=== PATIENT | female | born 1945 | race Caucasian/White ===

== ENCOUNTER → 2016-09-04 | Outpatient (CLI) | payer OTHER | END | disposition home or self-care (01) | LOC: C.PAPS 11:56 | PROVIDERS: ATTEND Obstetrics & Gynecology | DX: Z01.419 Encounter for gynecological examination (general) (routine) without abnormal findings (principal) ==

== ENCOUNTER → 2016-10-14 | Outpatient (CLI) | payer OTHER ==
[2016-10-14 11:30] LABS: ALT/SGPT 28 U/L (12-78); AST/SGOT 21 U/L (15-37); BLOOD UREA NITROGEN 21 mg/dl (7-18); BUN/CREATININE RATIO 31.1 (10-20); CARBON DIOXIDE 26 mmol/L (21-32); CHLORIDE 106 mmol/L (98-107); CREATININE 0.69 mg/dl (0.60-1.20); GLUCOSE 102 mg/dl (70-99); POTASSIUM 3.8 mmol/L (3.5-5.1); SODIUM 142 mmol/L (136-145)
[2016-10-14 11:32] LABS: ALB/GLOB RATIO 0.9 (0.9-2); ALKALINE PHOSPHATASE 110 U/L (45-117)
[2016-10-20 15:40] LABS: ANTI-CENTROMERE AB <1.0 NEG AI (<1.0 NEG); ANTI-SS-A <1.0 NEG AI (<1.0 NEG); ANTI-SS-B <1.0 NEG AI (<1.0 NEG); DNA ds CRITHIDIA NEGATIVE (NEGATIVE); MICROSOMAL AB <1 IU/ML (<9); Sm Antibody <1.0 NEG AI (<1.0 NEG)
== END | disposition home or self-care (01) ==
LOC: C.LABBC 08:24
PROVIDERS: ATTEND Family Medicine
DX: I10 Essential (primary) hypertension (principal); H04.123 Dry eye syndrome of bilateral lacrimal glands

== ENCOUNTER → 2016-10-26 | Outpatient (CLI) | payer OTHER ==
--- NOTE | 2016-10-27 12:17 | MAMMOGRAPHY REPORT ---
BILATERAL DIGITAL SCREENING MAMMOGRAM WITH CAD: 10/26/2016 CLINICAL HISTORY: Routine screening. Patient has no complaints. TECHNIQUE: Bilateral CC and MLO views were obtained. Current study was also evaluated with a Comput er Aided Detection (CAD) system. COMPARISON: Comparison is made to exams dated: 10/23/2015 mammogram, 10/22/2014 mammogram, 10/18/2013 mammogram, 10/17/2012 mammogram, 10/17/2012 ultrasound, and 04/18/2012 ultrasound - [facility]. BREAST COMPOSITION: The tissue of both breasts is heterogeneously dense, which may obscure small ma sses. FINDINGS: There is evidence of prior bilateral breast surgery. There is expected architectural dis tortion and benign oil cysts bilaterally. There is also coarse dystrophic calcification in the 12:0 0 far posterior right breast. No new suspicious mass, architectural distortion or cluster of suspic ious microcalcifications is seen. IMPRESSION: ACR BI-RADS CATEGORY 1: NEGATIVE There is no mammographic evidence of malignancy. A 1 year screening mammogram is recommended. The p atient will receive written notification of the results. Approximately 10% of breast cancers are not detected with mammography. A negative mammographic repor t should not delay biopsy if a clinically suggestive mass is present. Mickie Sutherland M.D. ay/:10/26/2016 16:50:11 Ferris Wheel Operator: Salena DIETRICH)(Juan), [facility] letter sent: Normal 1/2 BI-RADS Code: ACR BI-RADS Category 1: Negative
== END | disposition home or self-care (01) ==
LOC: C.MAMM 10:39
PROVIDERS: ATTEND Obstetrics & Gynecology
DX: Z12.31 Encounter for screening mammogram for malignant neoplasm of breast (principal)

== ENCOUNTER → 2017-04-15 | Outpatient (CLI) | payer OTHER | END | disposition home or self-care (01) | LOC: C.CPL 10:53 | PROVIDERS: ATTEND Physician Assistant Medical | DX: R06.09 Other forms of dyspnea (principal) ==

== ENCOUNTER → 2017-04-15 | Outpatient (CLI) | payer OTHER ==
--- NOTE | 2017-04-15 08:42 | DIAGNOSTIC IMAGING REPORT ---
CHEST 2 VIEWS ROUTINE CLINICAL HISTORY: COUGH dyspnea COMPARISON STUDY: 12/26/2012 FINDINGS: The bones soft tissues and hemidiaphragms are normal. The cardiomediastinal silhouette is normal. The lungs are clear. The pulmonary vasculature is normal. IMPRESSION: Negative chest. The above report was generated using voice recognition software. It may contain grammatical, syntax or spelling errors. Electronically signed by: Omar Dawson M.D. 04/15/2017 8:41 AM Dictated Date/Time: 04/15/2017 8:40 AM
[2017-04-15 11:22] LABS: ALT/SGPT 29 U/L (12-78); BLOOD UREA NITROGEN 26 mg/dl (7-18); BUN/CREATININE RATIO 35.6 (10-20); CALCIUM 9.6 mg/dl (8.5-10.1); CARBON DIOXIDE 28 mmol/L (21-32); CHLORIDE 105 mmol/L (98-107); CHOLESTEROL 184 mg/dl (0-200); CREATININE 0.73 mg/dl (0.60-1.20); GLUCOSE 100 mg/dl (70-99); SODIUM 139 mmol/L (136-145); TRIGLYCERIDES 128 mg/dl (0-150); VERY LOW DENSITY LIPOPROT CALC 26 mg/dl
[2017-04-15 11:33] LABS: ALKALINE PHOSPHATASE 92 U/L (45-117); AST/SGOT 24 U/L (15-37); CHOLESTEROL/HDL RATIO 2.1; HDL CHOLESTEROL 86 mg/dl; LDL CHOLESTEROL CALCULATED 72 mg/dl
== END | disposition home or self-care (01) ==
LOC: C.RADBC 08:21
PROVIDERS: ATTEND Physician Assistant Medical
DX: E78.5 Hyperlipidemia, unspecified (principal); I10 Essential (primary) hypertension; R06.09 Other forms of dyspnea; R05 Cough

== ENCOUNTER → 2017-04-19 | Outpatient (CLI) | payer OTHER ==
--- NOTE | 2017-04-19 13:39 | DIAGNOSTIC IMAGING REPORT ---
CAROTID DOPPLER NECK ART CLINICAL HISTORY: 72 years-old Female with CAROTID BRUIT. Initial exam. COMPARISON: None available. TECHNIQUE: Multiple real time sonographic images of the carotid bifurcations were obtained assessing luna scale, color Doppler and spectral wave form appearance FINDINGS: RIGHT CAROTID: The peak systolic velocity measured 71 cm/sec. The end diastolic velocity measured 24 cm/sec. The ICA to CCA ratio measured 0.9 which correlates with a stenosis of 0-50%. There is mild mixed plaquing of the right carotid bulb LEFT CAROTID: The peak systolic velocity measured 97 cm/sec. The end diastolic velocity measured 35 cm/sec. The ICA to CCA ratio measured 0.9 which correlates with a stenosis of 0-50%. There is mild mixed plaquing of the left carotid bulb. There is normal antegrade vertebral flow bilaterally. IMPRESSION: 1. Mild atherosclerotic plaquing of the bilateral carotid bulbs without hemodynamically significant stenosis. 2. Normal antegrade vertebral flow bilaterally. The above report was generated using voice recognition software. It may contain grammatical, syntax or spelling errors. Electronically signed by: Juan Caballero M.D. 04/19/2017 1:38 PM Dictated Date/Time: 04/19/2017 1:35 PM
== END | disposition home or self-care (01) ==
LOC: C.ULTRBC 12:52
PROVIDERS: ATTEND Physician Assistant Medical
DX: R09.89 Other specified symptoms and signs involving the circulatory and respiratory systems (principal)

== ENCOUNTER 2017-08-31 19:41 | Observation (INO) | payer OTHER ==
[~2017-08-31] VITALS: Ht 160 cm; Wt 84.1 kg
[2017-08-31 20:48] LABS: BASO % 0.4 %; BASO ABS # 0.03 K/uL (0-0.2); EOS % 4.3 %; EOS ABS # 0.32 K/uL (0-0.5); HEMATOCRIT 38.3 % (37-47); HEMOGLOBIN 12.5 g/dL (12.0-16.0); IG# 0.01 K/uL (0.00-0.02); LYMPH % 31.3 %; LYMPH ABS # 2.31 K/uL (1.2-3.4); MEAN CELL VOLUME 89.9 fL (80-100); MEAN CORPUSCULAR HEMOGLOBIN 29.3 pg (25-34); MEAN CORPUSCULAR HGB CONC 32.6 g/dl (32-36); MEAN PLATELET VOLUME 10.4 fL (7.4-10.4); MONO ABS # 0.59 K/uL (0.11-0.59); NEUT % 55.9 %; NEUT ABS # 4.11 K/uL (1.4-6.5); PLATELET COUNT 249 K/uL (130-400); RED CELL DISTRIBUTION WIDTH CV 14.7 % (11.5-14.5); RED CELL DISTRIBUTION WIDTH SD 47.8 fL (36.4-46.3); WHITE BLOOD COUNT 7.37 K/uL (4.8-10.8)
[2017-08-31 21:12] LABS: ALBUMIN 3.8 gm/dl (3.4-5.0); CALCIUM 9.5 mg/dl (8.5-10.1); CREATININE 0.85 mg/dl (0.60-1.20); POTASSIUM 3.8 mmol/L (3.5-5.1)
--- NOTE | 2017-08-31 22:15 | DIAGNOSTIC IMAGING REPORT ---
GALLBLADDER-ABD LIMITED HISTORY: 72 years-old Female elevated bili and lfts acutely elevated liver function tests COMPARISON: None available TECHNIQUE: Multiple real-time sonographic images of the abdominal right upper quadrant were obtained assessing grayscale appearance and color Doppler flow FINDINGS: Study is limited secondary to obscuring bowel gas. The visualized pancreas is unremarkable. There is increased echogenicity with poor through transmission of the liver suggesting fatty infiltration. No focal hepatic mass lesions or intrahepatic biliary ductal dilation. Common bile duct measures 3 mm, within normal limits. The gallbladder is within normal limits without shadowing cholelithiasis, wall thickening or pericholecystic fluid. Imaged right kidney is unremarkable without hydronephrosis. IMPRESSION: 1. No cholelithiasis or sonographic evidence of acute cholecystitis. 2. No biliary ductal dilation. 3. Hepatic steatosis. The above report was generated using voice recognition software. It may contain grammatical, syntax or spelling errors. Electronically signed by: Juan Caballero M.D. 08/31/2017 10:14 PM Dictated Date/Time: 08/31/2017 10:12 PM
[2017-08-31] MEDS ORDERED: OPTIRAY 320 IV PRN (22:45)
[2017-08-31] MEDS ORDERED: PRAV20TA PO ×2 (23:42)
[2017-08-31] MEDS ORDERED: B-CO1CAP17 PO ×2 (23:43)
[2017-08-31] MEDS ORDERED: OMEG10007 PO ×2 (23:43)
[2017-08-31] MEDS ORDERED: ASPI81TA28 PO ×2 (23:43)
[2017-08-31] MEDS ORDERED: FURO-85 PO ×2 (23:44)
[2017-08-31] MEDS ORDERED: METO50TA16 PO ×2 (23:44)
[2017-08-31] MEDS ORDERED: ALBU18002 INH ×2 (23:45)
[2017-08-31] MEDS ORDERED: DIAZ2TAB PO ×2 (23:46)
[2017-08-31] MEDS ORDERED: MAGN400T6 PO ×2 (23:46)
[2017-08-31] MEDS ORDERED: CHOL400T PO ×2 (23:48)
[2017-08-31] MEDS ORDERED: ATOR10TA82 PO ×2 (23:48)
[2017-08-31] MEDS ORDERED: MULT-506 PO ×2 (23:49)
[2017-08-31] MEDS ORDERED: SENNTAB23 PO ×2 (23:50)
--- NOTE | 2017-09-01 00:52 | EMERGENCY ROOM VISIT NOTE ---
History Report prepared by Carlos: Luciano Larkin Under the Supervision of: Dr. Wiley Torres D.O. First contact with patient: 19:57 Chief Complaint: ABNORMAL LABS Stated Complaint: LIVER TEST # OVER 600 History of Present Illness The patient is a 72 year old female who presents to the Emergency Room for evaluation of abnormal laboratory studies occurring today. Her LFTs were found to be above 600 by her PCP today. She has a history of similar symptoms associated with taking Tetracycline for acne. The patient began experiencing right sided jaw pain two weeks ago, and was seen by her PCP last week for it. She was found to have wax in her right ear at this time, and had it flushed out. She was started on Augmentin at this time for an ear infection. The patient states that she noticed her urine was dark this week, especially last night. She was seen by PCP again today for the urine and was found to have the abnormal lab values. Pt denies headache, change in vision, fevers, chest pain, shortness of breath, nausea, vomiting, diarrhea, and melena. She states that she feels fine. Source of History: patient Onset: Today Symptom Intensity: LFTs above 600 Quality: other (abnormal laboratory studies) Associated Symptoms: + urinary symptoms (dark color), No fevers, No headache , No chest pain, No SOB, No nausea, No vomiting, No melena, No diarrhea Review of Systems See HPI for pertinent positives & negatives. A total of 10 systems reviewed and were otherwise negative. Past Medical & Surgical Medical Problems: (1) GERD (gastroesophageal reflux disease) (2) HLD (hyperlipidemia) (3) HTN (hypertension) Family History No pertinent family history stated. Social History Smoking Status: Never Smoker Marital Status: Housing Status: lives with significant other Current/Historical Medications Scheduled Aspirin (Aspirin Ec), 81 MG PO DAILY Atorvastatin (Lipitor), 10 MG PO DAILY Cholecalciferol (Vitamin D), 400 UNITS PO DAILY Fish Oil ([place]-3), 1 CAP PO DAILY Furosemide (Lasix), 20 MG PO DAILY Magnesium Oxide (Mag-Ox), 400 MG PO DAILY Metoprolol Tartrate (Lopressor) (Lopressor), 50 MG PO BID Multivitamin (Multivitamin), 1 TAB PO DAILY Pravastatin (Pravachol ), 40 MG PO DAILY Sennosides-Docusate Sodium (Stool Softener), 1 TAB PO DAILY Vitamin B Cmplx/Vitc/Folic Ac (Nephrocaps), 1 CAP PO DAILY Scheduled PRN Albuterol Sulfate (Proair Respiclick), 2 PUFFS INH DIRECTED PRN for SOB/ Wheezing Diazepam (Valium), Unknown Dose PO QID PRN for anxiety Allergies Coded Allergies: Erythromycin (Verified Allergy, Unknown, 08/31/17) Morphine (Verified Allergy, Unknown, 08/31/17) Physical Exam Vital Signs Date Time Temp Pulse Resp B/P (MAP) Pulse Ox O2 Delivery O2 Flow Rate FiO2 09/01/17 00:18 92 18 162/75 95 Room Air 08/31/17 22:33 91 18 145/74 97 Room Air 08/31/17 21:38 95 14 154/74 96 Room Air 08/31/17 19:52 36.8 100 20 167/81 96 Room Air Physical Exam GENERAL: Sitting up in bed, alert, well appearing, well nourished, no distress, non-toxic EYE EXAM: Scleral icterus present. OROPHARYNX: no exudate, no erythema, lips, buccal mucosa, and tongue normal and mucous membranes are moist NECK: supple, no nuchal rigidity, no adenopathy, non-tender LUNGS: Clear to auscultation. Normal chest wall mechanics HEART: no murmurs, S1 normal and S2 normal ABDOMEN: abdomen soft, non-tender, normo-active bowel sounds, no masses, no rebound or guarding. BACK: Back is symmetrical on inspection and there is no deformity, no midline tenderness, no CVA tenderness. SKIN: no rashes and no bruising UPPER EXTREMITIES: upper extremities are grossly normal. LOWER EXTREMITIES: No pitting edema. NEURO EXAM: Normal sensorium, cranial nerves II-XII grossly intact, normal speech, no gross weakness of arms, no gross weakness of legs. Medical Decision & Procedures ER Provider Diagnostic Interpretation: CT results per statrad and my review CT ABDOMEN & PELVIS With Contrast: Probable gallstones. No CT of acute cholecystitis. Liver, spleen, pancreas, and adrenal glands are unremarkable. Kidneys, ureters, and urinary bladder are unremarkable. Uterus and adnexa are unremarkable. Appendix is unremarkable. Bowel is unremarkable. No acute osseous abnormality. US results as stated below per my review and the radiologist's interpretation: GALLBLADDER-ABD LIMITED FINDINGS: Study is limited secondary to obscuring bowel gas. The visualized pancreas is unremarkable. There is increased echogenicity with poor through transmission of the liver suggesting fatty infiltration. No focal hepatic mass lesions or intrahepatic biliary ductal dilation. Common bile duct measures 3 mm, within normal limits. The gallbladder is within normal limits without shadowing cholelithiasis, wall thickening or pericholecystic fluid. Imaged right kidney is unremarkable without hydronephrosis. IMPRESSION: 1. No cholelithiasis or sonographic evidence of acute cholecystitis. 2. No biliary ductal dilation. 3. Hepatic steatosis. The above report was generated using voice recognition software. It may contain grammatical, syntax or spelling errors. Electronically signed by: Juan Caballero M.D. 08/31/2017 10:14 PM Laboratory Results 08/31/17 20:31 Red Blood Count 4.26, Mean Corpuscular Volume 89.9, Mean Corpuscular Hemoglobin 29.3, Mean Corpuscular Hemoglobin Concent 32.6, Mean Platelet Volume 10.4, Neutrophils (%) (Auto) 55.9, Lymphocytes (%) (Auto) 31.3, Monocytes (%) (Auto) 8.0, Eosinophils (%) (Auto) 4.3, Basophils (%) (Auto) 0.4, Neutrophils # (Auto) 4.11, Lymphocytes # (Auto) 2.31, Monocytes # (Auto) 0.59, Eosinophils # (Auto) 0.32, Basophils # (Auto) 0.03 08/31/17 20:31 Test 08/31/17 20:31 09/01/17 00:06 White Blood Count 7.37 K/uL (4.8-10.8) Red Blood Count 4.26 M/uL (4.2-5.4) Hemoglobin 12.5 g/dL (12.0-16.0) Hematocrit 38.3 % (37-47) Mean Corpuscular Volume 89.9 fL (80-100) Mean Corpuscular Hemoglobin 29.3 pg (25-34) Mean Corpuscular Hemoglobin Concent 32.6 g/dl (32-36) Platelet Count 249 K/uL (130-400) Mean Platelet Volume 10.4 fL (7.4-10.4) Neutrophils (%) (Auto) 55.9 % Lymphocytes (%) (Auto) 31.3 % Monocytes (%) (Auto) 8.0 % Eosinophils (%) (Auto) 4.3 % Basophils (%) (Auto) 0.4 % Neutrophils # (Auto) 4.11 K/uL (1.4-6.5) Lymphocytes # (Auto) 2.31 K/uL (1.2-3.4) Monocytes # (Auto) 0.59 K/uL (0.11-0.59) Eosinophils # (Auto) 0.32 K/uL (0-0.5) Basophils # (Auto) 0.03 K/uL (0-0.2) RDW Standard Deviation 47.8 fL (36.4-46.3) RDW Coefficient of Variation 14.7 % (11.5-14.5) Immature Granulocyte % (Auto) 0.1 % Immature Granulocyte # (Auto) 0.01 K/uL (0.00-0.02) Prothrombin Time 10.5 SECONDS (9.0-12.0) Prothromb Time International Ratio 1.0 (0.9-1.1) Urine Color YELLOW Urine Appearance CLEAR (CLEAR) Urine pH 6.5 (4.5-7.5) Urine Specific [place] 1.011 (1.000-1.030) Urine Protein NEG (NEG) Urine Glucose (UA) NEG (NEG) Urine Ketones NEG (NEG) Urine Occult Blood TRACE (NEG) Urine Nitrite NEG (NEG) Urine Bilirubin NEG (NEG) Urine Urobilinogen NEG (NEG) Urine Leukocyte Esterase NEG (NEG) Urine WBC (Auto) 0 /hpf (0-5) Urine RBC (Auto) 0-4 /hpf (0-4) Urine Hyaline Casts (Auto) 0 /lpf (0-5) Urine Epithelial Cells (Auto) 0-5 /lpf (0-5) Urine Bacteria (Auto) NEG (NEG) Anion Gap 8.0 mmol/L (3-11) Est Creatinine Clear Calc Drug Dose 60.5 ml/min Estimated GFR () 78.8 Estimated GFR (Non- 68.0 BUN/Creatinine Ratio 22.7 (10-20) Calcium Level 9.5 mg/dl (8.5-10.1) Total Bilirubin 2.6 mg/dl (0.2-1) Direct Bilirubin 2.1 mg/dl (0-0.2) Aspartate Amino Transf (AST/SGOT) 235 U/L (15-37) Alanine Aminotransferase (ALT/SGPT) 596 U/L (12-78) Alkaline Phosphatase 548 U/L (45-117) Total Protein 8.0 gm/dl (6.4-8.2) Albumin 3.8 gm/dl (3.4-5.0) Lipase 241 U/L (73-393) Laboratory results per my review. ED Course ED COURSE: Vital signs were reviewed and showed tachycardia, and hypertension. The patients medical record was reviewed The above diagnostic studies were performed and reviewed. ED treatments and interventions as stated above. 2004: The patient was evaluated in room B4B. A complete history and physical examination was performed. 0010: Upon reevaluation, the patient is resting comfortably. I discussed my findings with the patient and she understands and agrees with the treatment plan. Based on the patients age, coexisting illnesses, exam and lab findings the decision to treat as an inpatient was made. The patient remained stable while under my care. The patient will be evaluated for further management. Medical Decision Differential diagnoses includes but is not limited to gastritis, peptic ulcer disease, GERD, gallbladder disease, pancreatitis, small bowel obstruction, acute coronary syndrome, pericarditis, ischemic bowel, irritable bowel disease, irritable bowel syndrome, appendicitis, diverticulitis, malignancy, hernia, urinary tract infection, torsion, perforation, trauma, infectious. Patient is a 72-year-old female referred in for a transaminitis with blood work done as an outpatient. She was recently placed on Augmentin for a right otitis media. She took 4 days worth of this antibiotic. CBC was unremarkable. BMP was normal. Bilirubin total was 2.6. AST 2:30 LT 600 alkaline phosphatase was elevated swell. Lipase is normal. INR normal. UA normal. Ultrasound shows no signs of dilated CBD. CT abdomen and pelvis shows no pancreatic mass. Discussed with GI and internal medicine. Patient will be admitted for further workup. Medication Reconcilliation Current Medication List: was personally reviewed by me Blood Pressure Screening Patient's blood pressure: Elevated blood pressure Blood pressure disposition: Referred to PCP Consults Time Called: 0001 Consulting Physician: Dr. Juan - PAT Hospitalist Returned Call: 0010 I reviewed the patient's case with Dr. Juan. PAT will evaluate the patient for further management. Impression Primary Impression: Transaminitis Additional Impression: Elevated bilirubin Scribe Attestation The scribe's documentation has been prepared under my direction and personally reviewed by me in its entirety. I confirm that the note above accurately reflects all work, treatment, procedures, and medical decision making performed by me. Departure Information Dispostion Being Evaluated By Hospitalist Referrals Mickie Orr ., MINDA (PCP) Patient Instructions My [facility] Problem Qualifiers
--- NOTE | 2017-09-01 01:32 | History and Physical ---
History & Physical Date & Time of Service: Sep 01, 2017 at 01:21 Chief Complaint: Liver Test # Over 600 Primary Care Physician: Mickie Orr .MINDA History of Present Illness Source: family 72 year old female with LBBB, HLD, HTN referred to ED for significantly deranged LFTs. Went to see PCP 1 week ago with jaw pain was found to have ear infection. Was put on Augmentin and completed 6 days worth of medication. ~5 days after onset of use, noticed urine was darker. Informed her PCP of this, and he performed routine labs and advised patient for further assessment. She denies recent travel or blood transfusion. Patient otherwise asymptomatic: no abdominal pain or bloating, no nausea/ vomiting, no jaundice, no changes in stool colour, no diarrhea or constipation. She had similar issues with urine discolouration and liver issues with chronic tetracycline use, but this resolved with discontinuation of the drug. 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 had similar urine colour changes in urine She otherwise denies fevers/chills, headaches, CP, palpitations, dyspnea, lower extremity swelling or bruising/bleeding or rashes. She has been tolerating diet , ambulating without issues, and voiding and stooling appropriately. ROS is unremarkable except as noted above. Past Medical/Surgical History Medical Problems: GERD HLD HTN LBBB Chronic lower extremity edema Surgical Problems: Breast implants and removal Family History Non contributory Social History Smoking Status: Never Smoker Smokeless Tobacco Use: No Alcohol Use: none Drug Use: none Marital Status: Housing status: lives with significant other Occupational Status: retired Immunizations History of Influenza Vaccine: Unknown History of Tetanus Vaccine?: Unknown History of Pneumococcal: Unknown History of Hepatitis B Vaccine: Unknown Multi-Drug Resistant Organisms History of MDRO: No Allergies Coded Allergies: Erythromycin (Verified Allergy, Unknown, 08/31/17) Morphine (Verified Allergy, Unknown, 08/31/17) Home Medications Scheduled Aspirin (Aspirin Ec), 81 MG PO DAILY Atorvastatin (Lipitor), 10 MG PO DAILY Cholecalciferol (Vitamin D), 400 UNITS PO DAILY Fish Oil ([place]-3), 1 CAP PO DAILY Furosemide (Lasix), 20 MG PO PRN Magnesium Oxide (Mag-Ox), 400 MG PO DAILY Metoprolol Tartrate (Lopressor) (Lopressor), 25 MG PO BID Multivitamin (Multivitamin), 1 TAB PO DAILY Pravastatin (Pravachol ), 40 MG PO DAILY Sennosides-Docusate Sodium (Stool Softener), 1 TAB PO DAILY Vitamin B Cmplx/Vitc/Folic Ac (Nephrocaps), 1 CAP PO DAILY Scheduled PRN Albuterol Sulfate (Proair Respiclick), 2 PUFFS INH DIRECTED PRN for SOB/ Wheezing Diazepam (Valium), Unknown Dose PO QID PRN for anxiety Physical Exam Vital Signs Date Time Temp Pulse Resp B/P (MAP) Pulse Ox O2 Delivery O2 Flow Rate FiO2 09/01/17 00:18 92 18 162/75 95 Room Air 08/31/17 22:33 91 18 145/74 97 Room Air 08/31/17 21:38 95 14 154/74 96 Room Air 08/31/17 19:52 36.8 100 20 167/81 96 Room Air General Appearance: WD/WN, no apparent distress Head: normocephalic, atraumatic Eyes: normal inspection, sclerae normal ENT: hearing grossly normal, pharynx normal Neck: supple, no adenopathy Respiratory/Chest: normal breath sounds, no respiratory distress, no accessory muscle use Cardiovascular: regular rate, rhythm, no murmur, normal peripheral pulses, + systolic murmur Abdomen/GI: normal bowel sounds, non tender, soft, no organomegaly Back: normal inspection, no CVA tenderness Extremities/Musculoskelatal: normal inspection, no calf tenderness Neurologic/Psych: alert, normal mood/affect, oriented x 3 Skin: normal color, warm/dry, no rash Diagnostics Laboratory Results Results Past 24 Hours Test 08/31/17 20:31 09/01/17 00:06 Range/Units White Blood Count 7.37 4.8-10.8 K/uL Red Blood Count 4.26 4.2-5.4 M/uL Hemoglobin 12.5 12.0-16.0 g/dL Hematocrit 38.3 37-47 % Mean Corpuscular Volume 89.9 80-100 fL Mean Corpuscular Hemoglobin 29.3 25-34 pg Mean Corpuscular Hemoglobin Concent 32.6 32-36 g/dl Platelet Count 249 130-400 K/uL Mean Platelet Volume 10.4 7.4-10.4 fL Neutrophils (%) (Auto) 55.9 % Lymphocytes (%) (Auto) 31.3 % Monocytes (%) (Auto) 8.0 % Eosinophils (%) (Auto) 4.3 % Basophils (%) (Auto) 0.4 % Neutrophils # (Auto) 4.11 1.4-6.5 K/uL Lymphocytes # (Auto) 2.31 1.2-3.4 K/uL Monocytes # (Auto) 0.59 0.11-0.59 K/uL Eosinophils # (Auto) 0.32 0-0.5 K/uL Basophils # (Auto) 0.03 0-0.2 K/uL RDW Standard Deviation 47.8 36.4-46.3 fL RDW Coefficient of Variation 14.7 11.5-14.5 % Immature Granulocyte % (Auto) 0.1 % Immature Granulocyte # (Auto) 0.01 0.00-0.02 K/uL Prothrombin Time 10.5 9.0-12.0 SECONDS Prothromb Time International Ratio 1.0 0.9-1.1 Urine Color YELLOW Urine Appearance CLEAR CLEAR Urine pH 6.5 4.5-7.5 Urine Specific [place] 1.011 1.000-1.030 Urine Protein NEG NEG Urine Glucose (UA) NEG NEG Urine Ketones NEG NEG Urine Occult Blood TRACE NEG Urine Nitrite NEG NEG Urine Bilirubin NEG NEG Urine Urobilinogen NEG NEG Urine Leukocyte Esterase NEG NEG Urine WBC (Auto) 0 0-5 /hpf Urine RBC (Auto) 0-4 0-4 /hpf Urine Hyaline Casts (Auto) 0 0-5 /lpf Urine Epithelial Cells (Auto) 0-5 0-5 /lpf Urine Bacteria (Auto) NEG NEG Sodium Level 139 136-145 mmol/L Potassium Level 3.8 3.5-5.1 mmol/L Chloride Level 104 98-107 mmol/L Carbon Dioxide Level 27 21-32 mmol/L Anion Gap 8.0 3-11 mmol/L Blood Urea Nitrogen 19 7-18 mg/dl Creatinine 0.85 0.60-1.20 mg/dl Est Creatinine Clear Calc Drug Dose 60.5 ml/min Estimated GFR () 78.8 Estimated GFR (Non- 68.0 BUN/Creatinine Ratio 22.7 10-20 Random Glucose 110 70-99 mg/dl Calcium Level 9.5 8.5-10.1 mg/dl Total Bilirubin 2.6 0.2-1 mg/dl Direct Bilirubin 2.1 0-0.2 mg/dl Aspartate Amino Transf (AST/SGOT) 235 15-37 U/L Alanine Aminotransferase (ALT/SGPT) 596 12-78 U/L Alkaline Phosphatase 548 45-117 U/L Total Protein 8.0 6.4-8.2 gm/dl Albumin 3.8 3.4-5.0 gm/dl Lipase 241 73-393 U/L Diagnostic Radiology GALLBLADDER-ABD LIMITED HISTORY: 72 years-old Female elevated bili and lfts acutely elevated liver function tests COMPARISON: None available TECHNIQUE: Multiple real-time sonographic images of the abdominal right upper quadrant were obtained assessing grayscale appearance and color Doppler flow FINDINGS: Study is limited secondary to obscuring bowel gas. The visualized pancreas is unremarkable. There is increased echogenicity with poor through transmission of the liver suggesting fatty infiltration. No focal hepatic mass lesions or intrahepatic biliary ductal dilation. Common bile duct measures 3 mm, within normal limits. The gallbladder is within normal limits without shadowing cholelithiasis, wall thickening or pericholecystic fluid. Imaged right kidney is unremarkable without hydronephrosis. IMPRESSION: 1. No cholelithiasis or sonographic evidence of acute cholecystitis. 2. No biliary ductal dilation. 3. Hepatic steatosis. Impression Assessment and Plan 72 year old female with LBBB, HLD, HTN admitted with significant transaminitis Transaminitis with elevated bilirubin - possibly secondary to Augmentin use - Await final read on CT abdo pelvis - GI consulted - NPO for potential GI procedure, if necessary - IVF NSS @ 100cc/hr - Hep panel, JOSEE, AMA ordered - Trend CMP HLD/HTN - Continue metoprolol, furosemide GERD - Pantoprazole VTE ppx - SCDs FULL CODE Attending addendum: I have physically seen this patient, have supervised the medical residents activities, and agree with the H&P unless as otherwise noted. Assessment and Plan: Abnormal LFTs-- Likely secondary to Augmentin, and she'll therefore not penicillin class as allergies CT of abdomen and pelvis negative for acute finding Nothing by mouth 70 such medications overnight Avoid acetaminophen and any other agents metabolized significantly by the liver in the short-term Acute hepatitis profile ordered him to be followed Partial antibody profile ordered Repeat laboratories in the a.m. Gastroenterology consulted CAD/hypertension-- Continue metoprolol tartrate Hold furosemide GERD-- Continue pantoprazole Level of Care Med/Surg Advanced Directives Existing Power of Ortho/Prosthetic Aide: Yes (Gabino Osei ()) Resuscitation Status FULL RESUSCITATION VTE Prophylaxis VTE Risk Assessment Done? Y/N: Yes Risk Level: Moderate Given or contraindicated: SCD's Resident Tracking Resident Involvement: Resident Care Provided Care Provided: Adult Hospital Medicine
[2017-09-01] MEDS ORDERED: ONDANSETRON INJ 2 MG/ML 2 ML VIAL IV PRN (01:45)
[2017-09-01] MEDS ORDERED: MAGNESIUM HYDROXIDE SUSP 30 ML UDC PO PRN (01:45)
[2017-09-01] MEDS ORDERED: ALUMINUM/MAGNESIUM/SIMETH (MAALOX MAX) 30 ML UDC PO PRN (01:45)
[2017-09-01] MEDS ORDERED: POLYETHYLENE (MIRALAX) 17 GM PACK PO PRN (01:45)
[2017-09-01] MEDS ORDERED: ALBUTEROL HFA 8 GM INHALER INH PRN (02:00)
[2017-09-01 02:35] VITALS: BP 160/81; PULSE 83; TEMP 36.5; O2SAT 96; Ht 160 cm; Wt 84.1 kg
[2017-09-01 02:47] LABS: HEP C IGG 13 YRS+OLDER_RFLX NEG (NEG)
[2017-09-01] MEDS ORDERED: IV FLUIDS COMPLETED PRN (05:00)
[2017-09-01] MEDS ORDERED: SODIUM CHLORIDE 0.9% 1000ML 1,000 ML IV SCH (05:45)
--- NOTE | 2017-09-01 06:39 | DIAGNOSTIC IMAGING REPORT ---
ABD/PELVIS IV CONTRAST ONLY CLINICAL HISTORY: 72 years-old Female presenting with abd pain. TECHNIQUE: Multidetector CT of the abdomen and pelvis was performed after the administration of intravenous contrast. IV contrast: None. A dose lowering technique was used consistent with the principles of ALARA (as low as reasonably achievable). COMPARISON: Ultrasound performed same day. CT DOSE (mGy.cm): The estimated cumulative dose is 638.17 mGy.cm. FINDINGS: Cooperative Education Director topogram: Unremarkable. Lung bases: Minimal basilar opacities, likely atelectasis. Mosaic attenuation at the lung bases could suggest small airways disease. Normal heart size. No pericardial or pleural effusion. Liver: Normal morphology. No liver lesion. Patent hepatic vasculature. Biliary: No intrahepatic or extrahepatic biliary ductal dilatation. Normal gallbladder. Pancreas: Normal. Spleen: Normal. Adrenal glands: Normal. Kidneys and ureters: Subcentimeter hypodensity in the right kidney too small to characterize but likely cyst. No hydronephrosis. No nephrolithiasis. Bladder: Mild circumferential bladder wall thickening may be due to underdistention. Pelvic organs: Uterus and ovaries normal. Bowel: Normal appendix. No bowel obstruction. Small hiatal hernia. Feces in the distal small bowel could suggest delayed transit. Peritoneal cavity: No free fluid or intraperitoneal gas. Lymph nodes: No enlarged lymph nodes in the abdomen or pelvis. Vasculature: Atherosclerosis of the normal caliber abdominal aorta. IVC patent. Abdominal wall: Normal. Musculoskeletal: Degenerative changes of the spine. IMPRESSION: 1. No acute intra-abdominal pathology. 2. Mild circumferential bladder wall thickening may be due to underdistention. Correlate with urinalysis to exclude cystitis. 3. Suspected small airways disease evidenced by mosaic attenuation at the lung bases. Electronically signed by: Cosmo Garcia M.D. 09/01/2017 6:38 AM Dictated Date/Time: 09/01/2017 6:33 AM
[2017-09-01 07:19] VITALS: BP 152/76; PULSE 78; TEMP 36.5; O2SAT 93
[2017-09-01 07:29] LABS: HEMATOCRIT 37.3 % (37-47); HEMOGLOBIN 12.2 g/dL (12.0-16.0); MEAN CELL VOLUME 89.2 fL (80-100); MEAN CORPUSCULAR HEMOGLOBIN 29.2 pg (25-34); MEAN CORPUSCULAR HGB CONC 32.7 g/dl (32-36); MEAN PLATELET VOLUME 10.4 fL (7.4-10.4); PLATELET COUNT 241 K/uL (130-400); RED CELL DISTRIBUTION WIDTH CV 14.7 % (11.5-14.5); RED CELL DISTRIBUTION WIDTH SD 47.9 fL (36.4-46.3); WHITE BLOOD COUNT 7.06 K/uL (4.8-10.8)
[2017-09-01 07:59] LABS: ALBUMIN 3.3 gm/dl (3.4-5.0); CALCIUM 9.6 mg/dl (8.5-10.1); CREATININE 0.67 mg/dl (0.60-1.20); POTASSIUM 3.5 mmol/L (3.5-5.1)
[2017-09-01 08:02] LABS: TOTAL PROTEIN 7.2 gm/dl (6.4-8.2)
--- NOTE | 2017-09-01 08:30 | Hospitalist Progress Note ---
Hospitalist Progress Note Date of Service Sep 01, 2017. Objective Vital Signs Date Time Temp Pulse Resp B/P (MAP) Pulse Ox O2 Delivery O2 Flow Rate FiO2 09/01/17 07:19 36.5 78 18 152/76 (101) 93 Room Air 09/01/17 07:11 Room Air 09/01/17 02:35 Room Air 09/01/17 02:35 36.5 83 16 160/81 96 Room Air 09/01/17 02:18 85 18 171/97 93 Room Air 09/01/17 00:18 92 18 162/75 95 Room Air 08/31/17 22:33 91 18 145/74 97 Room Air 08/31/17 21:38 95 14 154/74 96 Room Air 08/31/17 19:52 36.8 100 20 167/81 96 Room Air Laboratory Results Last 24 Hours Test 08/31/17 20:31 09/01/17 01:21 09/01/17 07:03 White Blood Count 7.37 K/uL 7.06 K/uL Red Blood Count 4.26 M/uL 4.18 M/uL Hemoglobin 12.5 g/dL 12.2 g/dL Hematocrit 38.3 % 37.3 % Mean Corpuscular Volume 89.9 fL 89.2 fL Mean Corpuscular Hemoglobin 29.3 pg 29.2 pg Mean Corpuscular Hemoglobin Concent 32.6 g/dl 32.7 g/dl Platelet Count 249 K/uL 241 K/uL Mean Platelet Volume 10.4 fL 10.4 fL Neutrophils (%) (Auto) 55.9 % Lymphocytes (%) (Auto) 31.3 % Monocytes (%) (Auto) 8.0 % Eosinophils (%) (Auto) 4.3 % Basophils (%) (Auto) 0.4 % Neutrophils # (Auto) 4.11 K/uL Lymphocytes # (Auto) 2.31 K/uL Monocytes # (Auto) 0.59 K/uL Eosinophils # (Auto) 0.32 K/uL Basophils # (Auto) 0.03 K/uL RDW Standard Deviation 47.8 fL 47.9 fL RDW Coefficient of Variation 14.7 % 14.7 % Immature Granulocyte % (Auto) 0.1 % Immature Granulocyte # (Auto) 0.01 K/uL Prothrombin Time 10.5 SECONDS Prothromb Time International Ratio 1.0 Urine Color YELLOW Urine Appearance CLEAR Urine pH 6.5 Urine Specific [place] 1.011 Urine Protein NEG Urine Glucose (UA) NEG Urine Ketones NEG Urine Occult Blood TRACE Urine Nitrite NEG Urine Bilirubin NEG Urine Urobilinogen NEG Urine Leukocyte Esterase NEG Urine WBC (Auto) 0 /hpf Urine RBC (Auto) 0-4 /hpf Urine Hyaline Casts (Auto) 0 /lpf Urine Epithelial Cells (Auto) 0-5 /lpf Urine Bacteria (Auto) NEG Sodium Level 139 mmol/L 140 mmol/L Potassium Level 3.8 mmol/L 3.5 mmol/L Chloride Level 104 mmol/L 107 mmol/L Carbon Dioxide Level 27 mmol/L 24 mmol/L Anion Gap 8.0 mmol/L 9.0 mmol/L Blood Urea Nitrogen 19 mg/dl 17 mg/dl Creatinine 0.85 mg/dl 0.67 mg/dl Est Creatinine Clear Calc Drug Dose 60.5 ml/min 76.8 ml/min Estimated GFR () 78.8 101.1 Estimated GFR (Non- 68.0 87.2 BUN/Creatinine Ratio 22.7 25.6 Random Glucose 110 mg/dl 90 mg/dl Calcium Level 9.5 mg/dl 9.6 mg/dl Total Bilirubin 2.6 mg/dl 2.5 mg/dl Direct Bilirubin 2.1 mg/dl Aspartate Amino Transf (AST/SGOT) 235 U/L 196 U/L Alanine Aminotransferase (ALT/SGPT) 596 U/L 470 U/L Alkaline Phosphatase 548 U/L 496 U/L Total Protein 8.0 gm/dl 7.2 gm/dl Albumin 3.8 gm/dl 3.3 gm/dl Lipase 241 U/L Hepatitis B Surface Antigen NEG Hepatitis C Antibody NEG Globulin 3.9 gm/dl Albumin/Globulin Ratio 0.9 Assessment and Plan 72 year old female with LBBB, HLD, HTN admitted with significant transaminitis Transaminitis with elevated bilirubin - possibly secondary to Augmentin use - Await final read on CT abdo pelvis - GI consulted - NPO for potential GI procedure, if necessary - IVF NSS @ 100cc/hr - Hep panel, JOSEE, AMA ordered - Trend CMP HLD/HTN - Continue metoprolol, furosemide GERD - Pantoprazole VTE ppx - SCDs FULL CODE
[2017-09-01] MEDS ORDERED: NEPHROCAPS PO SCH (09:00)
[2017-09-01] MEDS ORDERED: METOPROLOL TARTRATE 50 MG TAB PO SCH (09:00)
[2017-09-01] MEDS ORDERED: CHOLECALCIFEROL 400 INTER.UNIT TAB PO SCH (09:00)
[2017-09-01] MEDS ORDERED: MAGNESIUM OXIDE 400 MG TAB PO SCH (09:00)
[2017-09-01] MEDS ORDERED: MULTIVITAMIN TAB PO SCH (09:00)
[2017-09-01] MEDS ORDERED: PANTOprazole SOD 40 MG TAB PO SCH (09:00)
[2017-09-01] MEDS ORDERED: DOCUSATE SODIUM/SENNA 50/8.6MG TAB PO SCH (09:00)
[2017-09-01] MEDS ORDERED: FUROSEMIDE 20 MG TAB PO SCH (09:00)
--- NOTE | 2017-09-01 09:51 | Discharge Instructions ---
Discharge Instructions Date of Service Sep 01, 2017. Admission Reason for Admission: Elevated Bilirubin,Transaminitis Discharge Discharge Diagnosis / Problem: Elevated bilirubin, transaminitis Discharge Goals Goal(s): Decrease discomfort, Improve function, Increase independence, Improve disease control Activity Recommendations Activity Limitations: resume your previous activity Lifting Limitations: gradually increase as tolerated Exercise/Sports Limitations: rest today, gradually increase as tolerated May Resume Sexual Activity: when tolerated Shower/Bathe: no limitations Driving or Machine Use: no limitations . Instructions / Follow-Up Instructions / Follow-Up You were admitted to [facility] with elevated bilirubin, and other liver function tests (transaminases) and diagnosed with the same. During your stay here you were treated with supportive care and intravenous fluids. Imaging studies which were completed include CT of the abdomen/pelvis and and US of the gallbladder which was negative. Your blood work numbers were trending down prior to discharge. Lab Work: Follow up with blood work (LFTs ) daily tomorrow and Wednesday. A script has been given to you. Medications: STOP taking antibiotics! You completed 6 days for your ear infection and this is sufficient. Continue taking all other medications as prescribed. Follow up: Gastroenterology will contact you and set up and appointment for this Wednesday , to see you in office. Follow up with your Primary Care Provider within 1 week. Current Hospital Diet Patient's current hospital diet: Discharge Diet Recommended Diet: Regular Diet Pending Studies Studies pending at discharge: no Medical Emergencies . Who to Call and When: Medical Emergencies: If at any time you feel your situation is an emergency, please call 911 immediately. . Non-Emergent Contact Non-Emergency issues call your: Primary Care Provider Call Non-Emergent contact if: you have a fever, temperature is above 100.5, your pain is not controlled, your pain is worsening, your pain is unusual for you, your pain is concerning you, you have any medication questions other concerns with your health. Call 911 or go directly to the Emergency Department if you experience any of the following: Chest pain, chest tightness, shortness of breath, abdominal pain , lightheadedness, dizziness, gastrointestinal bleeding, or have any other concerns regarding your health. . Past History Medical & Surgical History: (1) Transaminitis (2) Elevated bilirubin (3) HTN (hypertension) (4) HLD (hyperlipidemia) . "Provider Documentation" section prepared by Amanda Cantu. . VTE Core Measure Inpt VTE Proph given/why not?: SCD's
[2017-09-01 10:42] VITALS: BP 152/76; PULSE 78; TEMP 36.5; O2SAT 93
--- NOTE | 2017-09-01 13:08 | Discharge Summary ---
Discharge Summary Date of Service Sep 01, 2017. Discharge Summary Admission Date: Sep 01, 2017 at 01:51 Discharge Date: Sep 01, 2017 Discharge Disposition: Home Principal Diagnosis: Elevated transaminases, bilirubin Problems/Secondary Diagnoses: old LBBB HLD HTN Transaminitis GERD Procedures: GALLBLADDER-ABD LIMITED 08/31/17 IMPRESSION: 1. No cholelithiasis or sonographic evidence of acute cholecystitis. 2. No biliary ductal dilation. 3. Hepatic steatosis. ABD/PELVIS IV CONTRAST ONLY IMPRESSION: 1. No acute intra-abdominal pathology. 2. Mild circumferential bladder wall thickening may be due to underdistention. Correlate with urinalysis to exclude cystitis. 3. Suspected small airways disease evidenced by mosaic attenuation at the lung bases. Consultations: GI Medication Reconciliation Continued Medications: Albuterol Sulfate (Proair Respiclick) 108 Mcg/Act Aer 2 PUFFS INH DIRECTED PRN for SOB/Wheezing Aspirin (Aspirin Ec) 81 Mg Tab 81 MG PO DAILY Atorvastatin (Lipitor) 10 Mg Tab 10 MG PO DAILY, TAB Cholecalciferol (Vitamin D) 400 Unit Tab 400 UNITS PO DAILY Diazepam (Valium) Unknown Strength Tab Unknown Dose PO QID PRN for anxiety, TAB Fish Oil ([place]-3) 1 Ea Cap 1 CAP PO DAILY, CAP Furosemide (Lasix) 20 Mg Tab 20 MG PO PRN, TAB Magnesium Oxide (Mag-Ox) 400 Mg Tab 400 MG PO DAILY, TAB Metoprolol Tartrate (Lopressor) (Lopressor) 50 Mg Tab 25 MG PO BID, TAB Multivitamin (Multivitamin) Tab 1 TAB PO DAILY, TAB Pravastatin (Pravachol ) 20 Mg Tab 40 MG PO DAILY, TAB Sennosides-Docusate Sodium (Stool Softener) 1 Tab Tab 1 TAB PO DAILY Vitamin B Cmplx/Vitc/Folic Ac (Nephrocaps) Cap 1 CAP PO DAILY for 90 Days, #90 CAP 3 Refills Discharge Exam The patient was seen and examined this morning. Pt reports doing well. She has no acute complaints. Pt denies abdominal pain, nausea, vomiting, bloating, discomfort. She had a BM this morning. She is urinating without difficulty but says its slightly dark. Discussion held with Dr. Joseph via the phone, and he will schedule her for follow up in the office this Wednesday. We will also have LFTs drawn tomorrow and Wednesday morning where results will go to her PCP and Dr. Joseph to be monitored. Pt is agreeable and all her questions and concerns were answered. We will hold on further antibiotics for ear infection at this time since she has complete 6 days of treatment. ROS: 6 point ROS reviewed and negative. Physical Exam: General Appearance: WD/WN, no apparent distress Eyes: PERRL, EOMI ENT: hearing grossly normal, pharynx normal, + pertinent finding (R ear with dark cerum, TM partially visualized and appears van, without erythema or bulging, no erythema of the canal. No pain with palpation of the tragus. ) Neck: supple, no JVD Respiratory/Chest: chest non-tender, lungs clear, no respiratory distress, no accessory muscle use Cardiovascular: regular rate, rhythm, no murmur, normal peripheral pulses Abdomen / GI: normal bowel sounds, non tender, soft Extremities: normal inspection, no calf tenderness, no pedal edema Neurologic/Psychiatric: alert, normal mood/affect, oriented x 3 Skin: normal color, warm/dry Hospital Course 72 year old female with LBBB, HLD, HTN admitted with significant transaminitis Transaminitis with elevated bilirubin - possibly secondary to Augmentin use for ear infection - CT abd/pelvis without acute abnormalities. U/S gallbladder was also negative for acute findings - GI consulted - discussed with Dr. Joseph on the phone and he will plan to follow her LFTs daily tomorrow and Wednesday, and see her in the office this Wednesday. - Hold on further antibiotics as elevated LFTs and bili are likely due to inflammatory process. She has completed 6 days, and although this is not ideal it is sufficient. R ear examined and shows dark cerumen although does not appear impacted. TM partially visualized and does not appear erythematous or bulging. - Pt allowed a diet at this time. - IVF NSS @ 100cc/hr - Hep panel, JOSEE, AMA ordered - will ask GI to follow these results as well. HLD/HTN - Continue metoprolol 25 mg BID, furosemide 20 mg PO prn but pt has not required this more than once per month. GERD - Pantoprazole VTE ppx - SCDs FULL CODE Disposition: From home, discharge today. Follow up with your Primary Care Provider within 1 week. Follow up with GI on Wednesday Total Time Spent: Greater than 30 minutes This includes examination of the patient, discharge planning, medication reconciliation, and communication with other providers. Discharge Instructions Please refer to the electronic Patient Visit Report (Discharge Instructions) for additional information. Follow-Up Follow up with your Primary Care Provider within 1 week. Follow up with GI on Wednesday, pt will be called and an appointment arranged by the GI office. Additional Copies To Mickie Orr ., MINDA
[2017-09-01] MEDS ORDERED: METOPROLOL TARTRATE 25 MG TAB PO SCH (21:00)
[2017-09-02 12:43] LABS: HEPATITIS A IGM TC 51813E NON-REACTIVE (NON-REACTIVE); HEPATITIS B CORE IGM TC51854R NON-REACTIVE (NON-REACTIVE)
[2017-09-02 14:38] LABS: ANA SCREEN TC 249X NEGATIVE (NEGATIVE)
--- NOTE | 2017-09-03 09:40 | Gastrointestinal Consultation ---
Gastrointestinal Consultation Date of Consultation: Sep 03, 2017 History of Present Illness Patient is a 72 year old female Past Medical/Surgical History Medical Problems: (1) Elevated bilirubin Status: Acute (2) Transaminitis Status: Acute Social History Smoking Status: Never Smoker Drug Use: none Marital Status: Housing Status: lives with significant other Occupation Status: retired Allergies Coded Allergies: Erythromycin (Verified Allergy, Unknown, 08/31/17) Morphine (Verified Allergy, Unknown, 08/31/17) Current Medications Home Meds and Scripts Medications Dose Route/Sig Max Daily Dose Days Date Category Stool Softener (Sennosides-Docusate Sodium) 1 Tab Tab 1 Tab PO DAILY 08/31/17 Reported Multivitamin (Multivitamins) Tab 1 Tab PO DAILY 08/31/17 Reported Lipitor (Atorvastatin Calcium) 10 Mg Tab 10 Mg PO DAILY 08/31/17 Reported Vitamin D (Cholecalciferol) 400 Unit Tab 400 Units PO DAILY 08/31/17 Reported Mag-Ox (Magnesium Oxide) 400 Mg Tab 400 Mg PO DAILY 08/31/17 Reported Valium (Diazepam) Unknown Strength Tab Unknown Dose PO QID PRN 08/31/17 Reported Proair Respiclick (Albuterol Sulfate) 108 Mcg/Act Aer 2 Puffs INH DIRECTED PRN 08/31/17 Reported Lasix (Furosemide) 20 Mg Tab 20 Mg PO PRN 08/31/17 Reported Lopressor (Metoprolol Tartrate) 50 Mg Tab 25 Mg PO BID 08/31/17 Reported Nephrocaps (Vitamin B Complex/Vit C/Folic Acid) Cap 1 Cap PO DAILY 90 08/31/17 Reported [place]-3 (Fish Oil) 1 Ea Cap 1 Cap PO DAILY 08/31/17 Reported Aspirin Ec (Aspirin) 81 Mg Tab 81 Mg PO DAILY 08/31/17 Reported Pravachol (Pravastatin Sodium) 20 Mg Tab 40 Mg PO DAILY 08/31/17 Reported Impression Patient is a 72 year old female Plan Patient was discharged prior to my evaluation Discussed case with Hospitalist, and arranged outpatient followup.
== END 2017-09-01 11:00 | disposition home or self-care (01) ==
LOC: C.EDB 19:45 → C.3E 09-01 01:51 → ENRESERV 09-01 02:10
PROVIDERS: ADMIT Hospitalist; ATTEND Internal Medicine
DX: R74.0 Nonspecific elevation of levels of transaminase and lactic acid dehydrogenase [LDH] (principal); R17 Unspecified jaundice; R94.5 Abnormal results of liver function studies; K21.9 Gastro-esophageal reflux disease without esophagitis; E78.5 Hyperlipidemia, unspecified; I10 Essential (primary) hypertension; Z79.82 Long term (current) use of aspirin; Z88.1 Allergy status to other antibiotic agents; Z88.5 Allergy status to narcotic agent

== ENCOUNTER → 2017-08-31 | Outpatient (CLI) | payer OTHER ==
[~2017-08-31] MED LIST: ALBU18002 INH; ASPI81TA28 PO; ATOR10TA82 PO; B-CO1CAP17 PO; CHOL400T PO; DIAZ2TAB PO; FURO-85 PO; MAGN400T6 PO; METO50TA16 PO; MULT-506 PO; OMEG10007 PO; PRAV20TA PO; SENNTAB23 PO
[2017-08-31 17:26] LABS: BASO % 0.3 %; BASO ABS # 0.03 K/uL (0-0.2); EOS % 4.1 %; EOS ABS # 0.37 K/uL (0-0.5); HEMATOCRIT 39.9 % (37-47); HEMOGLOBIN 13.1 g/dL (12.0-16.0); IG# 0.02 K/uL (0.00-0.02); LYMPH % 36.4 %; LYMPH ABS # 3.32 K/uL (1.2-3.4); MEAN CELL VOLUME 89.9 fL (80-100); MEAN CORPUSCULAR HEMOGLOBIN 29.5 pg (25-34); MEAN CORPUSCULAR HGB CONC 32.8 g/dl (32-36); MEAN PLATELET VOLUME 10.7 fL (7.4-10.4); MONO % 8.1 %; MONO ABS # 0.74 K/uL (0.11-0.59); NEUT % 50.9 %; NEUT ABS # 4.64 K/uL (1.4-6.5); PLATELET COUNT 282 K/uL (130-400); RED CELL DISTRIBUTION WIDTH CV 14.6 % (11.5-14.5); RED CELL DISTRIBUTION WIDTH SD 47.9 fL (36.4-46.3); WHITE BLOOD COUNT 9.12 K/uL (4.8-10.8)
[2017-08-31 17:46] LABS: ALBUMIN 3.8 gm/dl (3.4-5.0); ALT/SGPT 637 U/L (12-78); AST/SGOT 247 U/L (15-37); BLOOD UREA NITROGEN 18 mg/dl (7-18); CALCIUM 9.4 mg/dl (8.5-10.1); CARBON DIOXIDE 28 mmol/L (21-32); CREATININE 0.97 mg/dl (0.60-1.20); GLUCOSE 100 mg/dl (70-99); POTASSIUM 4.1 mmol/L (3.5-5.1); SODIUM 139 mmol/L (136-145)
[2017-08-31 17:49] LABS: ALKALINE PHOSPHATASE 568 U/L (45-117); TOTAL PROTEIN 8.4 gm/dl (6.4-8.2)
== END | disposition home or self-care (01) ==
LOC: C.LAB1850 16:26
PROVIDERS: ATTEND Internal Medicine
DX: R82.99 Other abnormal findings in urine (principal); L29.9 Pruritus, unspecified

== ENCOUNTER → 2017-09-02 | Outpatient (CLI) | payer OTHER ==
[2017-09-02 14:35] LABS: ALBUMIN 3.7 gm/dl (3.4-5.0); TOTAL PROTEIN 7.9 gm/dl (6.4-8.2)
== END | disposition home or self-care (01) ==
LOC: C.LABBC 10:44
PROVIDERS: ATTEND Physician Assistant
DX: R74.0 Nonspecific elevation of levels of transaminase and lactic acid dehydrogenase [LDH] (principal); R17 Unspecified jaundice

== ENCOUNTER → 2017-09-03 | Outpatient (CLI) | payer OTHER ==
[2017-09-03 14:15] LABS: ALBUMIN 3.8 gm/dl (3.4-5.0)
--- NOTE | 2017-09-17 09:05 | EDITING REQUIRED CODING QUERY ---
TREATMENT RENDERED WITHOUT A DIAGNOSIS To promote full compliance with coding requirements relating to patient care, physician participation is requested in all cases of manager technical sales uncertainty. Please assist us with providing a diagnosis/symptom for the test(s) below: A diagnosis/symptom was not documented on your Order. A valid diagnosis/symptom is required to bill all insurances. Please remember that we are unable to code a diagnosis of rule out, probable, possible, questionable, or suspected. Tests that require a diagnosis: DOS: 09/02/17-09/03/17 * Liver Profile DIAGNOSIS:transaminitis Elevated Transaminases, elevated bilirubin secondary to antibiotic use. Provider Signature: Amanda Cantu PA-C Date: _09/17/17 Thank you Laquita Bennett Health Information Management Once completed, please kindly fax back to [phone] For questions please call [phone]
== END | disposition home or self-care (01) ==
LOC: C.LABBC 09:44
PROVIDERS: ATTEND Physician Assistant
DX: R74.0 Nonspecific elevation of levels of transaminase and lactic acid dehydrogenase [LDH] (principal); R17 Unspecified jaundice; B17.9 Acute viral hepatitis, unspecified

== ENCOUNTER → 2017-09-03 | Outpatient (CLI) | payer OTHER ==
[2017-09-03 14:41] LABS: BASO % 0.5 %; BASO ABS # 0.04 K/uL (0-0.2); EOS % 3.8 %; EOS ABS # 0.29 K/uL (0-0.5); HEMATOCRIT 38.7 % (37-47); HEMOGLOBIN 12.8 g/dL (12.0-16.0); IG# 0.01 K/uL (0.00-0.02); LYMPH % 39.7 %; LYMPH ABS # 3.01 K/uL (1.2-3.4); MEAN CORPUSCULAR HEMOGLOBIN 29.8 pg (25-34); MEAN CORPUSCULAR HGB CONC 33.1 g/dl (32-36); MEAN PLATELET VOLUME 10.7 fL (7.4-10.4); MONO % 8.7 %; MONO ABS # 0.66 K/uL (0.11-0.59); NEUT % 47.2 %; NEUT ABS # 3.58 K/uL (1.4-6.5); PLATELET COUNT 280 K/uL (130-400); RED CELL DISTRIBUTION WIDTH CV 15.1 % (11.5-14.5); RED CELL DISTRIBUTION WIDTH SD 49.5 fL (36.4-46.3); WHITE BLOOD COUNT 7.59 K/uL (4.8-10.8)
[2017-09-03 15:12] LABS: ALBUMIN 3.8 gm/dl (3.4-5.0); ALT/SGPT 405 U/L (12-78); BLOOD UREA NITROGEN 17 mg/dl (7-18); CARBON DIOXIDE 25 mmol/L (21-32); CREATININE 0.72 mg/dl (0.60-1.20); GLUCOSE 112 mg/dl (70-99); SODIUM 139 mmol/L (136-145)
[2017-09-03 15:15] LABS: ALKALINE PHOSPHATASE 591 U/L (45-117); AST/SGOT 177 U/L (15-37); TOTAL PROTEIN 7.9 gm/dl (6.4-8.2)
== END | disposition home or self-care (01) ==
LOC: C.LAB 14:08
PROVIDERS: ATTEND Registered Nurse
DX: B17.9 Acute viral hepatitis, unspecified (principal)

== ENCOUNTER → 2017-09-08 | Outpatient (CLI) | payer OTHER ==
[2017-09-08 16:53] LABS: BASO % 0.6 %; BASO ABS # 0.04 K/uL (0-0.2); EOS % 6.1 %; EOS ABS # 0.41 K/uL (0-0.5); HEMATOCRIT 39.5 % (37-47); HEMOGLOBIN 12.9 g/dL (12.0-16.0); IG# 0.01 K/uL (0.00-0.02); LYMPH % 36.6 %; LYMPH ABS # 2.45 K/uL (1.2-3.4); MEAN CELL VOLUME 90.2 fL (80-100); MEAN CORPUSCULAR HEMOGLOBIN 29.5 pg (25-34); MEAN CORPUSCULAR HGB CONC 32.7 g/dl (32-36); MEAN PLATELET VOLUME 11.5 fL (7.4-10.4); MONO ABS # 0.67 K/uL (0.11-0.59); NEUT % 46.6 %; NEUT ABS # 3.12 K/uL (1.4-6.5); PLATELET COUNT 295 K/uL (130-400); RED CELL DISTRIBUTION WIDTH CV 15.4 % (11.5-14.5); RED CELL DISTRIBUTION WIDTH SD 51.2 fL (36.4-46.3)
[2017-09-08 17:02] LABS: INR 0.9 (0.9-1.1)
[2017-09-08 17:07] LABS: ALBUMIN 3.8 gm/dl (3.4-5.0); ALT/SGPT 204 U/L (12-78); BLOOD UREA NITROGEN 17 mg/dl (7-18); CALCIUM 9.6 mg/dl (8.5-10.1); CARBON DIOXIDE 25 mmol/L (21-32); CREATININE 0.75 mg/dl (0.60-1.20); GLUCOSE 101 mg/dl (70-99); SODIUM 136 mmol/L (136-145)
[2017-09-08 17:10] LABS: ALKALINE PHOSPHATASE 473 U/L (45-117); AST/SGOT 87 U/L (15-37); TOTAL PROTEIN 8.3 gm/dl (6.4-8.2)
== END ==
LOC: C.LABBC 14:06
PROVIDERS: ATTEND Registered Nurse
DX: K76.89 Other specified diseases of liver (principal); B17.9 Acute viral hepatitis, unspecified

== ENCOUNTER → 2017-09-23 | Outpatient (CLI) | payer OTHER ==
[2017-09-23 12:30] LABS: ALBUMIN 3.4 gm/dl (3.4-5.0); TOTAL PROTEIN 7.8 gm/dl (6.4-8.2)
== END | disposition home or self-care (01) ==
LOC: C.LAB 10:51
PROVIDERS: ATTEND Registered Nurse
DX: K76.89 Other specified diseases of liver (principal); B17.9 Acute viral hepatitis, unspecified; K83.1 Obstruction of bile duct

== ENCOUNTER → 2017-09-30 | Outpatient (CLI) | payer OTHER ==
[2017-09-30 17:00] LABS: BLOOD UREA NITROGEN 24 mg/dl (7-18); GLUCOSE 92 mg/dl (70-99)
[2017-09-30 17:01] LABS: ALBUMIN 3.3 gm/dl (3.4-5.0); ALT/SGPT 72 U/L (12-78); AST/SGOT 49 U/L (15-37); CALCIUM 9.8 mg/dl (8.5-10.1); CARBON DIOXIDE 28 mmol/L (21-32); CREATININE 0.92 mg/dl (0.60-1.20); SODIUM 140 mmol/L (136-145); TOTAL PROTEIN 7.4 gm/dl (6.4-8.2)
[2017-09-30 17:02] LABS: ALKALINE PHOSPHATASE 292 U/L (45-117)
== END | disposition home or self-care (01) ==
LOC: C.LABBC 10:54
PROVIDERS: ATTEND Nurse Practitioner Adult Health
DX: K76.89 Other specified diseases of liver (principal); B17.9 Acute viral hepatitis, unspecified

== ENCOUNTER → 2017-10-14 | Outpatient (CLI) | payer OTHER ==
[2017-10-14 14:10] LABS: ALBUMIN 3.4 gm/dl (3.4-5.0)
== END | disposition home or self-care (01) ==
LOC: C.LAB 11:58
PROVIDERS: ATTEND Registered Nurse
DX: K76.89 Other specified diseases of liver (principal); B17.9 Acute viral hepatitis, unspecified

== ENCOUNTER → 2017-10-21 | Outpatient (CLI) | payer OTHER ==
[2017-10-21 11:03] LABS: ALBUMIN 3.4 gm/dl (3.4-5.0); TOTAL PROTEIN 7.8 gm/dl (6.4-8.2)
== END | disposition home or self-care (01) ==
LOC: C.LABBC 08:48
PROVIDERS: ATTEND Registered Nurse
DX: K83.1 Obstruction of bile duct (principal); R79.89 Other specified abnormal findings of blood chemistry

== ENCOUNTER → 2017-10-27 | Outpatient (CLI) | payer OTHER ==
--- NOTE | 2017-10-27 15:22 | MAMMOGRAPHY REPORT ---
BILATERAL DIGITAL SCREENING MAMMOGRAM TOMOSYNTHESIS WITH CAD: 10/27/2017 CLINICAL HISTORY: Routine screening. TECHNIQUE: Breast tomosynthesis in addition to standard 2D mammography was performed. Current study was also evaluated with a Computer Aided Detection (CAD) system. COMPARISON: Comparison is made to exams dated: 10/23/2015 mammogram, 10/26/2016 mammogram, 10/22/2014 ma mmogram, 10/18/2013 mammogram, 10/17/2012 mammogram, and 07/10/2011 mammogram - [facility] enter. BREAST COMPOSITION: The tissue of both breasts is heterogeneously dense, which may obscure small mas ses. FINDINGS: No suspicious masses, calcifications, or areas of architectural distortion are noted in ei ther breast. There has been no significant interval change compared to prior exams. Again noted is e vidence of prior bilateral breast surgery, including architectural distortion and benign oil cysts bi laterally. IMPRESSION: ACR BI-RADS CATEGORY 2: BENIGN There is no mammographic evidence of malignancy. A 1 year screening mammogram is recommended. The pa tient will receive written notification of the results. Approximately 10% of breast cancers are not detected with mammography. A negative mammographic report should not delay biopsy if a clinically suggestive mass is present. Ashley Bedoya M.D. ah/:10/27/2017 12:48:59 Long Term Care Pharmacist: Anuj CHEATHAM(Mary)(M), [facility] letter sent: Normal 1/2 BI-RADS Code: ACR BI-RADS Category 2: Benign
== END | disposition home or self-care (01) ==
LOC: C.MAMM 10:31
PROVIDERS: ATTEND Obstetrics & Gynecology
DX: Z12.31 Encounter for screening mammogram for malignant neoplasm of breast (principal)

== ENCOUNTER → 2017-10-29 | Outpatient (CLI) | payer OTHER ==
[2017-10-29 11:35] LABS: ALBUMIN 3.4 gm/dl (3.4-5.0); TOTAL PROTEIN 7.7 gm/dl (6.4-8.2)
== END | disposition home or self-care (01) ==
LOC: C.LABBC 08:58
PROVIDERS: ATTEND Registered Nurse
DX: E80.6 Other disorders of bilirubin metabolism (principal)